=== PATIENT | female | born 1965 | race Caucasian/White ===

== ENCOUNTER → 2017-01-31 | Day surgery (SDC) | payer BC ==
[~2017-01-31] VITALS: Ht 165.1 cm; Wt 58.8 kg
[~2017-01-31] MED LIST: AMBIEN10 MG PO; ASCORBIC ACID500 MG PO; BELBUCA150 MCG BC; CARAFATE1 GM PO; HYDROCODON-ACE1 EAC6 PO; OMEGA 3 500 SO1 EACH PO; ONE DAILY WOME1 EAC1 PO; TURMERIC500 MG PO; VITAMIN E400 UNI2 PO; ZANTAC (NON-FO150 MG PO
== END | disposition disaster alternative care site (69) ==
LOC: GPOC 01-27 08:00 → GEND 09:46
PROC: 0DJD8ZZ Inspection of Lower Intestinal Tract, Via Natural or Artificial Opening Endoscopic (ICD-10-PCS; principal; 2017-01-31)
PROC: 0DB58ZX Excision of Esophagus, Via Natural or Artificial Opening Endoscopic, Diagnostic (ICD-10-PCS; 2017-01-31)
DX: Z12.11 Encounter for screening for malignant neoplasm of colon (principal); K21.9 Gastro-esophageal reflux disease without esophagitis; R13.10 Dysphagia, unspecified; K64.8 Other hemorrhoids; K63.89 Other specified diseases of intestine; Z86.010 Personal history of colon polyps; Z88.0 Allergy status to penicillin; Z88.8 Allergy status to other drugs, medicaments and biological substances; Z98.890 Other specified postprocedural states
CPT/HCPCS: 43239; G0105; J0131; J2001; J7030